=== PATIENT | male | born 1950 | race Caucasian/White ===

== ENCOUNTER 2019-08-27 05:25 | Observation (INO) | payer MEDICARE ==
[2019-08-25 13:21] LABS: BASOPHILS # (AUTO) 0.1 (0.0-0.1); BASOPHILS % 0.6 % (0.0-1.0); EOSINOPHILS # (AUTO) 0.1 (0.0-0.4); HEMATOCRIT 42.4 % (38.2-49.6); HEMOGLOBIN 14.8 g/dL (14.0-18.0); LYMPHOCYTES # (AUTO) 2.2 (1.0-3.2); LYMPHOCYTES % 19.9 % (18.0-39.1); MEAN CORPUSCULAR HEMOGLOBIN 31.7 pg (28-32); MEAN CORPUSCULAR HGB CONC 34.9 g/dL (31-35); MEAN CORPUSCULAR VOLUME 90.8 fL (81-99); MONOCYTES # (AUTO) 0.9 (0.2-0.8); MONOCYTES % 8.4 % (4.4-11.3); NEUTROPHILS # (AUTO) 7.8 (2.1-6.9); NEUTROPHILS % 69.3 % (38.7-80.0); PLATELET COUNT 331 x10e3/uL (140-360); RED BLOOD COUNT 4.67 x10e6/uL (4.3-5.7); RED CELL DISTRIBUTION WIDTH 12.9 % (11.7-14.4)
[2019-08-25 13:24] LABS: INR 0.87; PROTHROMBIN TIME 12.3 seconds (11.9-14.5)
[2019-08-25 13:25] LABS: PARTIAL THROMBOPLASTIN TIME 32.9 seconds (23.8-35.5)
[2019-08-25 13:32] LABS: ANION GAP 17.3 mmol/L (8-16); BLOOD UREA NITROGEN 12 mg/dL (7-26); BUN/CREATININE RATIO 12 (6-25); CALCIUM 10.1 mg/dL (8.4-10.2); CARBON DIOXIDE 25 mmol/L (22-29); CHLORIDE 95 mmol/L (98-107); CREATININE, SERUM 0.97 mg/dL (0.72-1.25); EST GLOMERULAR FILTRATION RATE > 60 ML/MIN (60-); GLUCOSE 108 mg/dL (74-118); POTASSIUM 5.3 mmol/L (3.5-5.1); SODIUM 132 mmol/L (136-145)
--- NOTE | 2019-08-25 13:36 | Diagnostic Imaging Report ---
EXAMINATION: PA and lateral views of the chest. COMPARISON: None CLINICAL HISTORY: Preoperative for lumbar spine surgery DISCUSSION: Lungs are well-inflated and without focal consolidation, pleural effusion, or pneumothorax. Calcified granuloma in the right lung base. Multiple dystrophic calcifications project over the right lung apex and along the right lateral chest wall. Cardiomediastinal contour is notable for tortuosity and atherosclerotic calcification of the thoracic aorta. Heart size. No overt pulmonary edema. No acute osseous abnormality. IMPRESSION: No acute cardiopulmonary abnormalities. Signed by: Dr. Amari Higgins M.D. on 08/25/2019 1:34 PM
[~2019-08-27] VITALS: Ht 177.8 cm; Wt 76.7 kg
[~2019-08-27 05:25] MED LIST: ALDACTONE25 MG PO; AMLODIPINE BESYL5 MG PO; ASPIRIN81 MG PO; CENTRUM SILVER1 EAC3 PO; CLOPIDOGREL75 MG PO; EFFIENT10 MG PO; LEVETIRACETAM500 MG PO; LISINOPRIL10 MG PO; METOPROLOL SUCC50 MG PO; PANTOPRAZOLE SO40 MG PO; PLAVIX75 MG PO; PRAVASTATIN SOD20 MG PO; PROPRANOLOL HCL80 M1 PO; ZESTRIL10 MG PO
--- OUTSIDE RECORDS SUMMARY | 2019-08-27 05:27 | XMS REPORT ---
Author Author [facility] Address Unknown Phone Unavailable Care Team Providers Care Examining Chair Assembler Name Role Phone ALLISON NAVARRETE Unavailable Unavailable Problems This patient has no known problems. Allergies, Adverse Reactions, Alerts This patient has no known allergies or adverse reactions. Medications This patient has no known medications. Encounters Start Date/Time End Date/Time Encounter Type Admission Type Attending [facility] Facility Care Department Encounter ID 2019-08-12 07:36:00 2019-08-12 07:36:00 Outpatient [id number] Results Test Description Test Time Test Comments Text Results Atomic Results Result Comments CHEST 2 VIEWS 2019-08-25 13:32:00 [place] [address] Patient Name: MORENITA UMANA MR #: [id number] : 1950 Age/Sex: 69/M Req #: [id number] Adm Physician: Ordered by: ALLISON NAVARRETE MD Report #: [id number] Location: OR Room/Bed: Procedure: [id number] DX/CHEST 2 VIEWS Exam Date: 08/25/19 Exam Time: 1320 REPORT STATUS: Signed EXAMINATION: PA and lateral views of the chest. COMP ARISON: None CLINICAL HISTORY: Preoperative for lumbar spine surgery DISCUSSION: Lungs are well-inflated and without focal consolidation, pleural effusion, or pneumothorax. Calcified granuloma in the right lung base. Multiple dystrophic calcifications project over the right lung apex and along the right lateral chest wall. Cardiomediastinal contour is notable for tortuosity and atherosclerotic calcification of the thoracic aorta. Heart size. No overt pulmonary edema. No acute osseous abnormality. IMPRESSION: No acute cardiopulmonary abnormalities. Signed by: Dr. Morenita Andrea M.D. on 08/25/2019 1:34 PM Dictated By: MORENITA ANDREA MD [id number] Transcribed By: VINCE on 08/25/19 1333 COPY TO: ALLISON NAVARRETE MD
[2019-08-27] MEDS ORDERED: VANCOMYCIN 1GM/NS 250 ML 250 ML ONE (05:53)
[2019-08-27] MEDS ORDERED: BACITRACIN 50,000 UNIT VIAL ONE (06:43)
[2019-08-27] MEDS ORDERED: BUPIVACAINE 0.5%/EPI 30 ML SDV INJ ONE (06:43)
[2019-08-27] MEDS ORDERED: THROMBIN FOR SOLN 5,000 UNIT VIAL ONE (06:43)
[2019-08-27 07:15] LABS: ANION GAP 16.6 mmol/L (8-16); CALCIUM 9.5 mg/dL (8.4-10.2); CREATININE, SERUM 1.2 mg/dL (0.72-1.25); POTASSIUM 4.6 mmol/L (3.5-5.1)
[2019-08-27] MEDS ORDERED: ACETAMINOPHEN 1000 MG/100 ML 100 ML IV ONE (07:16)
[2019-08-27] MEDS ORDERED: LIDOCAINE HCL (LTA) 4 ML SOLN ONE (07:16)
[2019-08-27] MEDS ORDERED: IBUPROFEN 800MG/ 200ML 200 ML IV ONE (07:17)
[2019-08-27] MEDS: LACTATED RINGER'S 1,000 ML IV SCH ×2 (08:40→17:00)
[2019-08-27] MEDS ORDERED: PROMETHAZINE HCL (IM) 25 MG/ML VIAL IM PRN (08:45)
[2019-08-27] MEDS ORDERED: ACETAMINOPHEN 325 MG TAB PO PRN (08:45)
[2019-08-27] MEDS ORDERED: CARISOPRODOL 350 MG TAB PO PRN (08:45)
[2019-08-27] MEDS ORDERED: ONDANSETRON HCL INJ 2MG/ML 2ML 2 MG/ML VIAL IV PRN (08:45)
[2019-08-27] MEDS ORDERED: MORPHINE SULFATE 5 MG/ML VIAL IM PRN (08:45)
[2019-08-27] MEDS ORDERED: ZOLPIDEM TARTRATE 5 MG TAB PO PRN (08:45)
[2019-08-27] MEDS ORDERED: OXYCODONE/ACETAMINOPHEN 5-325 1 EACH TABLET PO PRN (08:45)
[2019-08-27] MEDS ORDERED: MAGNESIUM/ALUMINUM/SIMETHICONE 30 ML UDC PO PRN (08:45)
[2019-08-27] MEDS ORDERED: HYDROMORPHONE 2MG/ML 2 MG/ML ML IV PRN (08:45)
[2019-08-27] MEDS: AMLODIPINE BESYLATE 5 MG TAB PO SCH (09:00)
[2019-08-27] MEDS: LISINOPRIL 10 MG TAB PO SCH (09:00)
[2019-08-27] MEDS: LEVETIRACETAM 500 MG TAB PO SCH ×2 (09:00→17:00)
[2019-08-27] MEDS: METOPROLOL SUCCINATE 50 MG TAB XL PO SCH ×2 (09:00→17:01)
[2019-08-27] MEDS ORDERED: ALBUTEROL SULF 0.083% NEB SOLN 3 ML NEB ONE (09:20)
[2019-08-27] MEDS ORDERED: MORPHINE SULFATE INJ 4 MG/ML INJ 1ML IM PRN (09:45)
[2019-08-27] MEDS ORDERED: FENTANYL CITRATE/PF 100MCG/2 ML INJ ONE ×2 (10:45→19:20)
[2019-08-27 12:00] VITALS: BP 101/57
--- NOTE | 2019-08-27 12:00 | NUR ---
pt arrived to unit resp even and unlabored, no distress noted, pt oriented to room and call light.
--- NOTE | 2019-08-27 15:34 | Operative Report ---
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 PROCEDURES: Left L5-S1 laminotomy, medial facetectomy, and microsurgical lateral recess decompression, 70703. ANESTHESIA: General. INDICATIONS: The patient is a 69-year-old man, who presents with severe left L5-S1 lateral recess stenosis, primarily due to ligamentous hypertrophy. He was taken to surgery for microsurgical lateral recess decompression. PROCEDURE IN DETAIL: After induction of general anesthesia, the patient was placed on the operating table in prone position over Brady frame. Lumbar region was prepped and draped in usual sterile fashion. A preoperative x-ray was obtained. A small midline incision was created. Lumbar fascia was opened in left of midline and subperiosteal dissection was carried out to expose the left-sided L5 and S1 laminae and the medial aspect of the L5-S1 hypertrophic facet joint. A second x-ray confirmed correct localization. The operating microscope was brought in. A high-speed drill equipped with lico bur was used to drill the inferior aspect of the lamina of L5 and the superior aspect of the lamina of S1 and the medial aspect of the left L5-S1 hypertrophic facet joint. The hypertrophic ligamentum flavum was then carefully resected from the midline to the left to fully expose the left side of the dural sac and the left S1 traversing nerve roots. After the nerve root had been decompressed, it was slightly retracted medially to explore the underlying disk. This consisted of a shallow disk osteophyte complex without any acute disk herniation. The diskectomy was not necessary and was not performed. Meticulous hemostasis was secured. A small piece of Gelfoam was left in the lateral recess to maintain epidural hemostasis. The wound was irrigated with bacitracin solution and closed with #0 and 2-0 Vicryl sutures. The skin was closed with 3-0 Monocryl sutures in subcuticular fashion. Steri-Strips and dressing were applied. The patient was awakened, extubated, and taken to the postanesthesia care unit in stable condition. No intraoperative complications were encountered. ESTIMATED BLOOD LOSS: 10 mL. Michael Elias MD PP/EMILIE /[id number]
[2019-08-27 16:00] VITALS: BP 102/55
[2019-08-27] MEDS: CEFAZOLIN SOD 1 GM/NS 50ML 50 ML IV SCH (17:00)
[2019-08-27 17:54] VITALS: BP 102/55
[2019-08-27] MEDS ORDERED: ONDANSETRON HCL INJ 2MG/ML 2ML 2 MG/ML VIAL ONE (18:30)
[2019-08-27] MEDS ORDERED: LIDOCAINE HCL 2% LOCAL INJ 5 ML SDV VIAL INJ ONE (18:30)
[2019-08-27] MEDS ORDERED: NEOSTIGMINE 1 MG/ML 10ML VIAL ONE (18:30)
[2019-08-27] MEDS ORDERED: ROCURONIUM BROMIDE 10 MG/ML 5ML VIAL ONE (18:30)
[2019-08-27] MEDS ORDERED: SEVOFLURANE INHAL SOLN 250 ML PEN BTL ONE (18:30)
[2019-08-27] MEDS ORDERED: PROPOFOL IV EMULSION 10 MG/ML 20 ML VIAL ONE (18:30)
[2019-08-27] MEDS ORDERED: DEXAMETHASONE SOD PHOS INJ 4 MG/ML VIAL ONE (18:30)
[2019-08-27] MEDS ORDERED: GLYCOPYRROLATE INJ 0.2 MG/ML VIAL ONE (18:30)
--- NOTE | 2019-08-27 19:21 | NUR ---
walking rounds complete, pt stable at this time.
[2019-08-27 20:00] VITALS: BP 98/53
[2019-08-27] MEDS ORDERED: PRAVASTATIN 20 MG TAB PO SCH (21:00)
[2019-08-27 21:18] VITALS: BP 98/53
[2019-08-27 22:54] VITALS: BP 134/68
[2019-08-28] MEDS: CEFAZOLIN SOD 1 GM/NS 50ML 50 ML IV SCH ×2 (00:25→08:00)
[2019-08-28] MEDS: LACTATED RINGER'S 1,000 ML IV SCH (01:20)
[2019-08-28 01:47] VITALS: BP 102/54
[2019-08-28 04:00] VITALS: BP 98/57
--- NOTE | 2019-08-28 07:00 | NUR ---
patient endorsed to next shift for continuity of care.
[2019-08-28] MEDS ORDERED: PANTOPRAZOLE SOD 40 MG TABEC PO SCH (07:30)
[2019-08-28 08:00] VITALS: BP 121/68
[2019-08-28] MEDS ORDERED: ONDANSETRON HCL 4 MG ORAL DISINTEGRATING TAB PO PRN (08:15)
[2019-08-28] MEDS: LEVETIRACETAM 500 MG TAB PO SCH (09:16)
[2019-08-28] MEDS: AMLODIPINE BESYLATE 5 MG TAB PO SCH (09:16)
[2019-08-28] MEDS: METOPROLOL SUCCINATE 50 MG TAB XL PO SCH (09:17)
[2019-08-28] MEDS: LISINOPRIL 10 MG TAB PO SCH (09:17)
--- NOTE | 2019-08-28 09:40 | NUR ---
The pt. sat up and approximately 50cc's old blood was expressed from the dressing. The area was cleansed aseptically and small dressing applied. The pt. was instructed to call dr immediately should he bleed again.
--- NOTE | 2019-08-28 10:00 | NUR ---
The pt. was escorted to private car for transport home.
== END 2019-08-28 09:56 | disposition home or self-care (01) ==
LOC: OR 05:25 → PACU V 08:42 → MED/SURG 12:00
PROVIDERS: ADMIT Neurological Surgery; ATTEND Neurological Surgery
DX: M48.062 Spinal stenosis, lumbar region with neurogenic claudication (principal); I25.10 Atherosclerotic heart disease of native coronary artery without angina pectoris; I10 Essential (primary) hypertension; G40.909 Epilepsy, unspecified, not intractable, without status epilepticus
CPT/HCPCS: 36415 ×2; 63047; 71046; 72020; 80048 ×2; 85025; 85610; 85730; 86850; 86900; 88304; 93005; G0378 ×2; J0131; J0690 ×2; J1100; J1170; J2001; J2270; J2405; J2704; J2710; J3010; J3370; J7121; S0164 ×2